=== PATIENT | female | born 1995 | race Hispanic/Latino ===

== ENCOUNTER 2018-06-27 20:38 | Emergency (ER) | payer BC ==
[2018-06-27 20:54] VITALS: BMI 30.4
[2018-06-27 20:57] VITALS: BP 122/83; PULSE 88; RESP 18; TEMP 98.2; O2SAT 98
--- NOTE | 2018-06-27 21:11 | ED PDOC ---
HPI: Wound Care - HPI Time Seen by Provider: 06/27/18 21:00 Chief Complaint (Nursing): Wound Check Chief Complaint (Provider): Wound Check History Per: Patient Exam Limitations: no limitations Onset/Duration Of Symptoms: Days (x1) Current Symptoms Are (Timing): Still Present Additional Complaint(s): 22 year old female with a hx of staph infections presents to the ED for evaluation of worsening blister. Patient notes that last night she noticed a blister to the posterior part of her left ankle, which developed increasingly throbbing pain and surrounding redness. She also notes redness to the dorsum of her foot. Denies fever and chills. PMD: Debra Past Medical History Reviewed: Historical Data, Nursing Documentation, Vital Signs Vital Signs: Last Vital Signs Temp 98.2 F 06/27/18 20:53 Pulse 88 06/27/18 20:53 Resp 18 06/27/18 20:53 BP 122/83 06/27/18 20:53 Pulse Ox 98 06/27/18 20:53 - Medical History Other PMH: hx of staph infections - Surgical History Surgical History: No Surg Hx - Family History Family History: States: Unknown Family Hx - Home Medications Home Medications: Ambulatory Orders Medication Instructions Recorded Clindamycin [Cleocin] 300 mg PO Q6 #28 cap 06/27/18 - Allergies Allergies/Adverse Reactions: Allergies Allergy/AdvReac Type Severity Reaction Status Date / Time sulfamethoxazole Allergy RASH Verified 06/27/18 20:53 [From Bactrim] trimethoprim [From Bactrim] Allergy RASH Verified 06/27/18 20:53 Review of Systems ROS Statement: Except As Marked, All Systems Reviewed And Found Negative Constitutional: Negative for: Fever, Chills Skin: Positive for: Other (blister to posterior part of left ankle with throbbing pain and surrounding redness. redness also on dorsum of left foot.) Physical Exam - Reviewed Nursing Documentation Reviewed: Yes Vital Signs Reviewed: Yes - Physical Exam Appears: Positive for: No Acute Distress Head Exam: Positive for: ATRAUMATIC, NORMOCEPHALIC Skin: Positive for: Warm, Dry Eye Exam: Positive for: Normal appearance Cardiovascular/Chest: Positive for: Regular Rate, Rhythm Respiratory: Positive for: Normal Breath Sounds. Negative for: Accessory Muscle Use, Respiratory Distress Extremity: Positive for: Normal ROM, Other (1cm ulcerative wound noted on posterior aspect of left foot by Achilles region with surrounding erythema; dorsum of the left foot: small excoriation with mild erythema noted easily blanchable ) Neurologic/Psych: Positive for: Alert, Oriented (x3). Negative for: Motor/ Sensory Deficits - ECG O2 Sat by Pulse Oximetry: 98 (RA) Pulse Ox Interpretation: Normal Medical Decision Making Medical Decision Making: Time: 21:10 Initial Impression: possible early cellulitis Initial Plan: --Podiatry was consulted over the phone at this time. Patient will be given podiatry clinic information to follow up with, and instructed to follow up there or with her PMD within 2-3 days. She was advised to return to the ED with any new or worsening symptoms. All questions answered at this time. Scribe Attestation: Documented by Bre Guillen, acting as a scribe for Reese Bradford PA-C. Provider Scribe Attestation: All medical record entries made by the Scribe were at my direction and personally dictated by me. I have reviewed the chart and agree that the record accurately reflects my personal performance of the history, physical exam, medical decision making, and the department course for this patient. I have also personally directed, reviewed, and agree with the discharge instructions and disposition. Disposition - Clinical Impression Clinical Impression: Wound infection - Patient ED Disposition Is Patient to be Admitted: No - Disposition Referrals: Podiatry Clinic [Outside] Disposition: Against Medical Advice Disposition Time: 21:10 Condition: FAIR Prescriptions: Clindamycin [Cleocin] 300 mg PO Q6 #28 cap Instructions: Wound Infection Forms: [employer] ([place]ayan)
[2018-06-27] MEDS ORDERED: Promethazine 6.25 MG/5 ML CUP ONE (22:15)
== END 2018-06-27 22:11 | disposition home or self-care (01) ==
LOC: H.ER 20:38
DX: T81.4XXA Infection following a procedure, initial encounter (principal); Z86.19 Personal history of other infectious and parasitic diseases